=== PATIENT | male | born 1950 | race Caucasian/White ===

== ENCOUNTER 2017-10-04 07:15 | Day surgery (SDC) | payer OTHER ==
[~2017-10-04] VITALS: Ht 375.9 cm; Wt 95.3 kg
--- NOTE | ~2017-10-04 | OP ---
PATIENT NAME: STEPHIE SANTANA MEDICAL RECORD: [id number] :48 LOCATION:AB ADMISSION DATE: SURGEON: AIDAN CHIANG MD DATE OF OPERATION: 10/04/2017 PREOPERATIVE DIAGNOSES: End-stage renal disease on dialysis and initial reducible left inguinal hernia. POSTOPERATIVE DIAGNOSES: End-stage renal disease on dialysis and initial reducible left inguinal hernia. OPERATION PERFORMED: Laparoscopic implantation of peritoneal dialysis catheter with subcutaneous extension and open repair of indirect left inguinal hernia with resection of spermatic cord lipoma, repair done with patch and plug. SURGEON: Aidan Chiang MD ANESTHESIA: General endotracheal per ORGANIZATION DEVELOPMENT CONSULTANT. REFERRING PHYSICIAN: Demetrio Licona MD PREOPERATIVE NOTE: This 66-year-old morbidly obese white male patient, on chronic hemodialysis, desires to do peritoneal dialysis. He is brought to the operating room today for laparoscopic placement of a PD catheter. I planned to use a Merit catheter with subcutaneous extension and placed the exit site in the right upper quadrant of the abdomen. The patient also on physical examination has a possible left inguinal hernia. I have told him that we will inspect the area by laparoscopy at the time of surgery and if he does have a hernia that it should be repaired and we will plan to do so. He is in agreement. Under general endotracheal anesthesia in supine position, the patient was prepped and draped in sterile manner. I identified the level of the pubic symphysis and using the stencils provided with the Merit dialysis catheters, I identified a site for primary incision through which the catheter would be inserted into the abdomen and a site for a secondary incision in the right upper quadrant or hypochondrium. I made the incision in the right lower quadrant of the abdomen approximately 2 inches in length, so that I could angle a needle and place the guidewire and then subsequently the introducer and lastly the dialysis catheter in a tunnel within the rectus sheath to direct it into the pelvis and help prevent migration. I made a stab incision in the left upper quadrant and inserted a 5-mm XL Optiview port with 0-degree 5-mm laparoscope in place and then insufflated the abdomen with carbon dioxide. Eventually, 2 additional 5-mm ports were placed, one in the right lower quadrant, one in the left lower quadrant. A Cook needle was then inserted through the first incision through the anterior rectus sheath and then in a direction parallel to the muscle as far as possible before passing it through the peritoneum into the abdominal cavity. A guidewire was then inserted and then a peel-away 15-Divehi introducer. The peritoneal catheter was inserted in through the peel-away sheath and it was directed very nicely down into the pelvis and the peel-away sheath was removed. I bluntly past the Dacron felt cuff down into the rectus sheath and placed a pursestring suture of 2-0 Prolene in the anterior rectus sheath to keep the cuff from extruding anteriorly. Before insertion of the catheters, both were rinsed vigorously with saline and all of the air expressed from the Dacron felt cuffs while being held under water and saline solution. This is to encourage and enhance tissue ingrowth into the cuffs. OPERATIVE REPORT [id number] STEPHIE SANTANA I noted laparoscopically that there was no problem and there was no significant omentum in the lower half of the abdomen and it was not necessary to perform omentopexy. I did see that there was no right inguinal hernia. The left internal inguinal ring was obscured by adhesions to the sigmoid colon. These were sharply lysed and I did identify an internal ring opening and consequently an indirect inguinal hernia. The skin was incised with a secondary incision site in the right upper quadrant and the incision carried down to the fascia. A subcutaneous tunnel along the rectus sheath was then made between the 2 incisions. The catheter was measured and the distance between the 2 wounds measured. The catheter was then cut to a length of approximately 9 cm. Titanium connector was used to connect that catheter to the subcutaneous extension which was then inserted through the long subcutaneous anterior rectus tunnel up to the secondary incision. It was at that point that the superficial Dacron felt cuff was left. I made a curving as much as possible, a curved tunnel with trocar from that site up and over laterally to the chosen site for exit in the right upper quadrant and then pulled the catheter along this. The catheter at the exit site is directed downward to help prevent problems with water running up into the tunnel when he showers. The catheter was then accessed and flushed with saline, it functioned well. It was then heparin locked with heparin 100 units per cc. It was fixed to the skin at the exit site with Mastisol and quarter inch Steri-Strips. A Biopatch chlorhexidine containing dressing was applied and over that Maxorb Ag, Tegaderm and Cavilon skin prep. The catheter was then coiled and a Medipore dressing applied over that to hold it in place. The other incisions were infiltrated with 0.25% Marcaine without epinephrine. The wounds were closed with interrupted inverted 3-0 Vicryl and running intracuticular 4-0 Monocryl and Dermabond glue. They were dressed with Maxorb Ag, Tegaderm and Cavilon skin prep. A separate and distinct portion of the operation then commenced. A transversely oriented right inguinal incision was made and carried down through the Cristin's fascia and the subcutaneous tissues to expose the external oblique and the external inguinal ring. These structures were carefully defined and the anterior rectus and the anterior oblique are then divided parallel to its fibers through the external ring. The cord mobilized and dissected. The patient did not have a direct hernia. He did have a very small indirect hernia, which was easily reduced into the preperitoneal space and had a modest sized cord lipoma which was resected. The floor of the canal was repaired by first inserting a PerFix Light polypropylene plug into the internal ring. It was sutured to the margins of that structure with interrupted 3-0 Vicryl. A polypropylene patch of the same Light material was then sutured to the floor of the inguinal canal and it was cut so that its arms could not embrace the cord structures and create a new internal ring and these arms of the mesh were tucked nicely up under the oblique aponeurosis. The patch was sutured with interrupted 3-0 Vicryl. The external oblique was then approximated over the cord with interrupted 3-0 Vicryl and the wound then infiltrated with 0.25% Marcaine without epinephrine. The cord and testicle were reduced back down the canal and into the scrotum. The Cristin's fascia was then closed with interrupted inverted 3-0 Vicryl. Skin was closed with running intracuticular 4-0 Monocryl and Dermabond glue and the wound dressed with Maxorb Ag, Tegaderm and Cavilon skin prep. The patient then awakened and extubated, was taken to the recovery room in stable condition. Blood loss about 10 cc during the operation was of course unreplaced and all sponges, instruments, and needles were accounted for. No drain was used other than the peritoneal dialysis catheter as described above and the spermatic cord OPERATIVE REPORT [id number] STEPHIE SANTANA lipoma was submitted as a specimen for histopathology. PLAN: If the patient is comfortable enough, he should be able to go home today and recover at home. He will be given a prescription for Leonidas 5/325, #30. He can take 1 or if needed 2 every 4 hours p.r.n. for pain and he is to use an icepack on the groin and to the other abdominal incisional areas p.r.n. He is also advised to wear a jockey strap or athletic scrotal support and he is provided with an abdominal binder which he is to wear if he finds it makes him more comfortable, particularly with coughing and sneezing, deep breathing, etc. An appointment scheduled for him to return to see me in my office next week and he is given my personal cell numbers as well as my office numbers so that he can reach me over the weekend or after hours, he certainly can call. He is to continue all of the same medications, which include 0.8 mg of Flomax daily. TRANSINT:[id number] Voice Confirmation ID: [id number] DOCUMENT ID: [id number] AIDAN CHIANG MD at 1351 CC: DEMETRIO LICONA [id number] DICTATION DATE: 10/04/17 1611 MD PHYSICIAN DERMATOLOGIST: 10/04/17 1716 [facility] 10/04/17 [id number] [place] [address]
[2017-10-04 08:10] LABS: BASOPHILS 0.9 % (0-2); EOSINOPHILS 15.2 % (0-7); HEMATOCRIT 30.1 % (42.0-54.0); HEMOGLOBIN 9.5 g/dL (13.5-17.5); IMMATURE GRANULOCYTES 0.3 % (0-5); MCH 33.1 pg (26.0-34.0); MCHC 31.6 g/dL (31.0-37.0); MCV 104.9 fL (80.0-100.0); MEAN PLATELET VOLUME 10.7 fL (7.4-10.4); MONOCYTES 17.7 % (2-11); NEUTROPHILS 53.9 % (40-80); PLATELET COUNT 164 10x3/uL (130-400); RBC 2.87 10x6/uL (4.20-6.10); RDW 15.1 % (11.5-14.5); WBC 6.3 10x3/uL (4.8-10.8)
[2017-10-04 08:19] LABS: INR 1.08 (0.85-1.17); PROTIME 13.6 SECONDS (11.6-15.0)
[2017-10-04 08:20] LABS: APTT 34.9 SECONDS (22.8-39.4)
[2017-10-04 08:25] LABS: ANION GAP 14.2 mmol/L (8-16); CALCIUM 7.3 mg/dL (8.5-10.1); CARBON DIOXIDE 23.8 mmol/L (21.0-32.0); CREATININE - SERUM 5.5 mg/dL (0.6-1.3)
[2017-10-04] MEDS ORDERED: COREG12.5 MG PO (09:04)
[2017-10-04] MEDS ORDERED: PRINIVIL20 MG (09:05)
[2017-10-04] MEDS ORDERED: OMEPRAZOLE40 MG (09:06)
[2017-10-04] MEDS ORDERED: RENVELA0.8 GM PO (09:07)
[2017-10-04] MEDS ORDERED: LASIX40 MG PO (09:08)
[2017-10-04] MEDS ORDERED: FLOMAX0.4 MG PO (09:09)
[2017-10-04] MEDS ORDERED: CALCI-CHEW1 TAB.CHEW PO (09:10)
[2017-10-04] MEDS ORDERED: SENSIPAR60 MG PO (09:11)
[2017-10-04] MEDS ORDERED: PHOSLO667 MG (09:12)
[2017-10-04 09:14] VITALS: BP 149/86; Ht 375.9 cm; Wt 95.3 kg
[2017-10-04] MEDS ORDERED: HYDROCODON-ACE1 EAC7 PO (15:44)
== END 2017-10-04 18:15 | disposition home or self-care (01) ==
LOC: D.OPS 07:15
PROVIDERS: Surgery
DX: I12.0 Hypertensive chronic kidney disease with stage 5 chronic kidney disease or end stage renal disease (principal); N18.6 End stage renal disease; G47.30 Sleep apnea, unspecified; K21.9 Gastro-esophageal reflux disease without esophagitis; Z95.5 Presence of coronary angioplasty implant and graft; Z01.812 Encounter for preprocedural laboratory examination; K40.90 Unilateral inguinal hernia, without obstruction or gangrene, not specified as recurrent

== ENCOUNTER 2017-11-29 08:38 | Day surgery (SDC) | payer OTHER ==
[~2017-11-29] VITALS: Ht 172.7 cm; Wt 98.4 kg
--- NOTE | ~2017-11-29 | OP ---
PATIENT NAME: STEPHIE SANTANA MEDICAL RECORD: [id number] :48 LOCATION:D.[facility] ADMISSION DATE: SURGEON: AIDAN CHIANG MD DATE OF OPERATION: 11/29/2017 REFERRING PHYSICIAN: Demetrio Licona MD PREOPERATIVE DIAGNOSES: End-stage renal disease with dependence on renal dialysis and mechanical complication of peritoneal dialysis catheter and also morbid obesity. OPERATION PERFORMED: Removal of peritoneal dialysis catheter and its subcutaneous extension. SURGEON: Aidan Chiang MD ANESTHESIA: Local and TIVA per Dr. Martínez. PREOPERATIVE NOTE: Mr. Santana is a 66-year-old white male patient who is quite obese, who was recently started on dialysis. I placed a peritoneal dialysis catheter with a subcutaneous extension about a month or 6 weeks ago. He started dialysis with it, but found it painful and does not want to do peritoneal dialysis and so he is brought to the operating room today to remove it. Under TIVA, the patient was placed in supine position and prepped and draped in a sterile manner. Skin and subcutaneous tissues were infiltrated with local 1% lidocaine as needed. The incisions were placed over the Dacron felt cuffs and these were exposed and the catheter divided and the external portion removed and the cuff was then dissected from the surrounding tissues, allowed the longer medial segment with the titanium connector to be removed. Dissection then deeper in the inferior incision exposed the Dacron felt cuffs deep in the rectus sheath and the remaining intraperitoneal portion of the catheter was then easily removed by traction. The fascia was closed with a few interrupted 0 Vicryl. The wound was irrigated with Ancef and gentamicin solution, were then closed with a few interrupted 3-0 Vicryls and surgical demetrius and sterile dressings were applied. The patient awakened from his anesthetic, was taken to the recovery room in stable condition. Blood loss during the operation was insignificant and unreplaced. Sponges, instruments, and needles were accounted for. No drain was used. The patient will be discharged to home today to continue all of his same medications and his home as usual hemodialysis schedule and he is to return to my office next week for followup. TRANSINT:[id number] Voice Confirmation ID: [id number] DOCUMENT ID: [id number] AIDAN CHIANG MD at 1221 CC: DEMETRIO LICONA [id number] DICTATION DATE: 12/17/17 1245 FARM EQUIPMENT ENGINE MECHANIC: 12/17/17 0394 [facility] 11/29/17 [facility] [address] [id number]
[~2017-11-29 08:38] MED LIST: CALCI-CHEW1 TAB.CHEW PO; COREG12.5 MG PO; FLOMAX0.4 MG PO; HYDROCODON-ACE1 EAC7 PO; LASIX40 MG PO; OMEPRAZOLE40 MG; PHOSLO667 MG; PRINIVIL20 MG; RENVELA0.8 GM PO; SENSIPAR60 MG PO
[2017-11-29 10:16] VITALS: BP 131/80; Ht 172.7 cm; Wt 98.4 kg
[2017-11-29 10:23] LABS: BASOPHILS 0.2 % (0-2); EOSINOPHILS 2.1 % (0-7); HEMATOCRIT 31.2 % (42.0-54.0); HEMOGLOBIN 9.8 g/dL (13.5-17.5); IMMATURE GRANULOCYTES 0.3 % (0-5); LYMPHOCYTES 9.7 % (15-50); MCH 32.7 pg (26.0-34.0); MCHC 31.4 g/dL (31.0-37.0); MEAN PLATELET VOLUME 10.7 fL (7.4-10.4); MONOCYTES 9.2 % (2-11); NEUTROPHILS 78.5 % (40-80); PLATELET COUNT 154 10x3/uL (130-400); RDW 13.6 % (11.5-14.5); WBC 8.8 10x3/uL (4.8-10.8)
[2017-11-29 10:33] LABS: INR 1.04 (0.85-1.17); PROTIME 13.2 SECONDS (11.6-15.0)
[2017-11-29 10:34] LABS: APTT 36.5 SECONDS (22.8-39.4)
[2017-11-29 10:38] LABS: ANION GAP 12.9 mmol/L (8-16); CALCIUM 7.6 mg/dL (8.5-10.1); CARBON DIOXIDE 29.5 mmol/L (21.0-32.0); CREATININE - SERUM 5.7 mg/dL (0.6-1.3); POTASSIUM - SERUM 4.4 mmol/L (3.5-5.1)
[2017-11-29] MEDS ORDERED: HYDROCODON-ACE1 EAC7 PO (15:22)
== END 2017-11-29 17:20 | disposition home or self-care (01) ==
LOC: D.OPS 08:38
PROVIDERS: Internal Medicine Nephrology
DX: T85.691A Other mechanical complication of intraperitoneal dialysis catheter, initial encounter (principal); I25.10 Atherosclerotic heart disease of native coronary artery without angina pectoris; K21.9 Gastro-esophageal reflux disease without esophagitis; N18.6 End stage renal disease; Z99.2 Dependence on renal dialysis; Z01.812 Encounter for preprocedural laboratory examination